=== PATIENT | male | born 1980 | race Caucasian/White ===

== ENCOUNTER 2018-09-24 13:20 | Emergency (ER) | payer SELFPAY ==
[~2018-09-24] VITALS: Ht 185.4 cm; Wt 111.1 kg
[2018-09-24] MEDS ORDERED: KETOROLAC 30 MG/ML VIAL. IV ONE ×2 (13:45→17:30)
[2018-09-24] MEDS ORDERED: IV NORMAL SALINE 1000ML BAG 1,000 ML IV ONE (13:45)
[2018-09-24 13:54] LABS: BILIRUBIN,URINE NEGATIVE (NEG); CLARITY,URINE CLEAR; COLOR,URINE YELLOW; NITRITE,URINE NEGATIVE (NEG); PROTEIN,URINE NEGATIVE (NEG-TRACE); UROBILINOGEN,URINE 0.2 mg/dL (0.2 mg/dL)
[2018-09-24 13:55] LABS: BASO # 0.1 x10^3/uL (0.0-0.2); BASO % 1 % (0-3); EOS # 0.1 x10^3/uL (0.0-0.7); EOS % 1 % (0-3); HEMATOCRIT 42.3 % (39.0-53.0); HEMOGLOBIN 14.8 g/dL (13.0-17.5); LYMPH # 2.4 x10^3/uL (1.0-4.8); LYMPH % 23 % (24-48); MEAN CORPUSCULAR HEMOGLOBIN 32 pg (25-35); MEAN CORPUSCULAR HGB CONC 35 g/dL (31-37); MEAN CORPUSCULAR VOLUME 91 fL (79-100); MONO # 0.9 x10^3/uL (0.0-1.1); MONO % 9 % (0-9); NEUT % 67 % (31-73); PLATELET COUNT 202 x10^3/uL (140-400); RED BLOOD COUNT 4.66 x10^6/uL (4.30-5.70); RED CELL DISTRIBUTION WIDTH 12.8 % (11.5-14.5); WHITE BLOOD COUNT 10.4 x10^3/uL (4.0-11.0)
[2018-09-24 14:05] LABS: CALCIUM 8.9 mg/dL (8.5-10.1); GFR 84.5; POTASSIUM 3.8 mmol/L (3.5-5.1)
[2018-09-24 14:06] LABS: BACTERIA,URINE 0 /HPF (0-FEW); RBC,URINE 0 /HPF (0-2); WBC,URINE 0 /HPF (0-4)
[2018-09-24 14:10] LABS: ALBUMIN 4.2 g/dL (3.4-5.0); ALBUMIN/GLOBULIN RATIO 1.2 (1.0-1.7); TOTAL BILIRUBIN 0.8 mg/dL (0.2-1.0); TOTAL PROTEIN 7.7 g/dL (6.4-8.2)
--- NOTE | 2018-09-24 14:37 | RAD ---
Examination: CT of the abdomen pelvis without contrast HISTORY: History of right flank pain TECHNIQUE: Axial CT images of the abdomen pelvis were performed without contrast. Coronal and sagittal reformats are performed Exposure: One or more of the following individualized dose reduction techniques were utilized for this examination: 1. Automated exposure control 2. Adjustment of the mA and/or kV according to patient size 3. Use of iterative reconstruction technique FINDINGS: Mild right lung base airspace opacities likely atelectasis or infiltrate. Minimal atelectasis identified in the left lung base. No evidence of free air identified in the abdomen. The evaluation of the solid organs is limited due to lack of IV contrast. The evaluation of the bowel is limited lack of oral contrast. The visualized noncontrasted liver, spleen, adrenals grossly appears unremarkable. The gallbladder is mildly distended The stomach is minimally distended. The visualized pancreas grossly appears unremarkable. The small bowel is nondilated. Feces and gas noted in the colon. The urinary bladder is mildly distended. The appendix is normal. No evidence of intrarenal collecting system calculi or hydronephrosis. The caliber of the aorta grossly appears unremarkable. IMPRESSION: 1. No evidence of intrarenal collecting system calculi or hydronephrosis. 2. Normal-appearing appendix. 3. Mild right lung base airspace opacities likely atelectasis or infiltrate. Electronically signed by: Haroon Venegas MD (09/24/2018 2:33 PM) [facility]
--- NOTE | 2018-09-24 16:02 | RAD ---
Testicular ultrasound History: RT TESTICULAR PAIN x1 year. Comparison: None. Technique: Multiple grayscale, color flow Doppler and Doppler spectral analysis images of the scrotum are obtained. Findings: Right testicle measures 4.6 x 3.3 x 2.1 cm. Right testicle demonstrates normal parenchymal echogenicity. Scattered microliths are noted. The right epididymis is unremarkable. Left testicle measures 4.9 x 3.1 x 2.2 cm. Left testicle demonstrates normal parenchymal echogenicity. Scattered microliths are noted. The left epididymis is unremarkable. A varicocele is not demonstrated. There are trace bilateral hydroceles. Scrotal hyperemia or swelling are not seen. Doppler imaging demonstrates normal flow to both testicles, without evidence of torsion. IMPRESSION: 1. No evidence of testicular mass or torsion. 2. Testicular microlithiasis. 3. Trace bilateral hydroceles. Electronically signed by: Gomez Carlson MD (09/24/2018 3:59 PM) [facility] [place]
[2018-09-24 17:18] VITALS: BP 144/90
[2018-09-24] MEDS ORDERED: CYCL5TAB PO (17:27)
[2018-09-24] MEDS ORDERED: HYDR-3164 PO (17:27)
[2018-09-24] MEDS ORDERED: DOXY100C2 PO (17:27)
--- NOTE | 2018-09-24 17:28 | PHYS DOC ---
Past Medical History Past Medical History: Other Additional Past Medical Histor: herpes Past Surgical History: No Surgical History Alcohol Use: Occasionally Drug Use: Marijuana Adult General Chief Complaint Chief Complaint: FLANK PAIN HPI HPI Patient is a 38 year old male who presents with right flank pain that extends into his right testicle. The patient states that he has had several episodes of pain like this in this had complete workups including with urology. They did not find a cause for his pain then. He denies a history of kidney stones. He does still have his gallbladder. He denies fever. He states that the pain was so intense today that he vomited. Review of Systems Review of Systems Constitutional: Denies fever or chills [] Eyes: Denies change in visual acuity, redness, or eye pain [] HENT: Denies nasal congestion or sore throat [] Respiratory: Denies cough or shortness of breath [] Cardiovascular: No additional information not addressed in HPI [] GI: See history of present illness : Denies dysuria or hematuria [] Musculoskeletal: See history of present illness Integument: Denies rash or skin lesions [] Neurologic: Denies headache, focal weakness or sensory changes [] Endocrine: Denies polyuria or polydipsia [] All other systems were reviewed and found to be within normal limits, except as documented in this note. Current Medications Current Medications Current Medications Medications (Trade) Dose Ordered Sig/Anastacio Start Time Stop Time Status Last Admin Dose Admin Ketorolac Tromethamine (Toradol 30mg Vial) 30 mg 1X ONCE 09/24/18 17:30 09/24/18 17:31 UNV Sodium Chloride 1,000 ml @ 1,000 mls/hr 1X ONCE 09/24/18 13:45 09/24/18 14:44 DC 09/24/18 14:01 1,000 MLS/HR Allergies Allergies Allergies Coded Allergies Type Severity Reaction Last Updated Verified No Known Drug Allergies 09/24/18 No Physical Exam Physical Exam Constitutional: Well developed, well nourished, no acute distress, non-toxic appearance. [] HENT: Normocephalic, atraumatic, bilateral external ears normal, oropharynx moist, no oral exudates, nose normal. [] Eyes: PERRLA, EOMI, conjunctiva normal, no discharge. [] Neck: Normal range of motion, no tenderness, supple, no stridor. [] Cardiovascular:Heart rate regular rhythm, no murmur [] Lungs & Thorax: Bilateral breath sounds clear to auscultation [] Abdomen: Bowel sounds normal, soft, right upper quadrant and epigastric tenderness that radiates into his right scrotum, no masses, no pulsatile masses. [] Skin: Warm, dry, no erythema, no rash. [] Back: No point spinal tenderness, right CVA tenderness. [] Extremities: No tenderness, no cyanosis, no clubbing, ROM intact, no edema. [] Neurologic: Alert and oriented X 3, normal motor function, normal sensory function, no focal deficits noted. [] Psychologic: Affect normal, judgement normal, mood normal. [] Current Patient Data Vital Signs Vital Signs Date Time Temp Pulse Resp B/P (MAP) Pulse Ox O2 Delivery O2 Flow Rate FiO2 09/24/18 17:18 80 20 144/90 (108) 99 Room Air 09/24/18 13:30 97.9 97.9 Lab Values Laboratory Tests Test 09/24/18 13:25 09/24/18 13:45 Urine Collection Type Void Urine Color Yellow Urine Clarity Clear Urine pH 6.0 Urine Specific [place] 1.015 Urine Protein Negative mg/dL (NEG-TRACE) Urine Glucose (UA) Negative mg/dL (NEG) Urine Ketones (Stick) Negative mg/dL (NEG) Urine Blood Negative (NEG) Urine Nitrite Negative (NEG) Urine Bilirubin Negative (NEG) Urine Urobilinogen Dipstick 0.2 mg/dL (0.2 mg/dL) Urine Leukocyte Esterase Negative (NEG) Urine RBC 0 /HPF (0-2) Urine WBC 0 /HPF (0-4) Urine Bacteria 0 /HPF (0-FEW) White Blood Count 10.4 x10^3/uL (4.0-11.0) Red Blood Count 4.66 x10^6/uL (4.30-5.70) Hemoglobin 14.8 g/dL (13.0-17.5) Hematocrit 42.3 % (39.0-53.0) Mean Corpuscular Volume 91 fL (79-100) Mean Corpuscular Hemoglobin 32 pg (25-35) Mean Corpuscular Hemoglobin Concent 35 g/dL (31-37) Red Cell Distribution Width 12.8 % (11.5-14.5) Platelet Count 202 x10^3/uL (140-400) Neutrophils (%) (Auto) 67 % (31-73) Lymphocytes (%) (Auto) 23 % (24-48) L Monocytes (%) (Auto) 9 % (0-9) Eosinophils (%) (Auto) 1 % (0-3) Basophils (%) (Auto) 1 % (0-3) Neutrophils # (Auto) 7.0 x10^3uL (1.8-7.7) Lymphocytes # (Auto) 2.4 x10^3/uL (1.0-4.8) Monocytes # (Auto) 0.9 x10^3/uL (0.0-1.1) Eosinophils # (Auto) 0.1 x10^3/uL (0.0-0.7) Basophils # (Auto) 0.1 x10^3/uL (0.0-0.2) Sodium Level 140 mmol/L (136-145) Potassium Level 3.8 mmol/L (3.5-5.1) Chloride Level 103 mmol/L (98-107) Carbon Dioxide Level 28 mmol/L (21-32) Anion Gap 9 (6-14) Blood Urea Nitrogen 19 mg/dL (8-26) Creatinine 1.0 mg/dL (0.7-1.3) Estimated GFR (Cockcroft-Gault) 84.5 BUN/Creatinine Ratio 19 (6-20) Glucose Level 88 mg/dL (70-99) Calcium Level 8.9 mg/dL (8.5-10.1) Total Bilirubin 0.8 mg/dL (0.2-1.0) Aspartate Amino Transferase (AST) 19 U/L (15-37) Alanine Aminotransferase (ALT) 32 U/L (16-63) Alkaline Phosphatase 62 U/L (46-116) Total Protein 7.7 g/dL (6.4-8.2) Albumin 4.2 g/dL (3.4-5.0) Albumin/Globulin Ratio 1.2 (1.0-1.7) Laboratory Tests 09/24/18 13:45 Laboratory Tests 09/24/18 13:45 EKG EKG [] Radiology/Procedures Radiology/Procedures []PATIENT: SHANTANU SIMON AACCOUNT: [id number]#: [id number] : 1980 LOCATION: ER AGE: 38 SEX: M EXAM STATUS: PRE ER ORD. PHYSICIAN: OLYA FUNK APRN REASON: flank pain to right PROCEDURE: CT ABDOMEN PELVIS WO CONTRAST Examination: CT of the abdomen pelvis without contrast HISTORY: History of right flank pain TECHNIQUE: Axial CT images of the abdomen pelvis were performed without contrast. Coronal and sagittal reformats are performed Exposure: One or more of the following individualized dose reduction techniques were utilized for this examination: 1. Automated exposure control 2. Adjustment of the mA and/or kV according to patient size 3. Use of iterative reconstruction technique FINDINGS: Mild right lung base airspace opacities likely atelectasis or infiltrate. Minimal atelectasis identified in the left lung base. No evidence of free air identified in the abdomen. The evaluation of the solid organs is limited due to lack of IV contrast. The evaluation of the bowel is limited lack of oral contrast. The visualized noncontrasted liver, spleen, adrenals grossly appears unremarkable. The gallbladder is mildly distended The stomach is minimally distended. The visualized pancreas grossly appears unremarkable. The small bowel is nondilated. Feces and gas noted in the colon. The urinary bladder is mildly distended. The appendix is normal. No evidence of intrarenal collecting system calculi or hydronephrosis. The caliber of the aorta grossly appears unremarkable. IMPRESSION: 1. No evidence of intrarenal collecting system calculi or hydronephrosis. 2. Normal-appearing appendix. 3. Mild right lung base airspace opacities likely atelectasis or infiltrate. PATIENT: SHANTANU SIMON ACCOUNT: [id number] : 1980 LOCATION: ER AGE: 38 SEX: M EXAM STATUS: REG ER ORD. PHYSICIAN: OLYA FUNK APRN REASON: pain to right testicle PROCEDURE: TESTICULAR/SCROTUM Testicular ultrasound History: RT TESTICULAR PAIN x1 year. Comparison: None. Technique: Multiple grayscale, color flow Doppler and Doppler spectral analysis images of the scrotum are obtained. Findings: Right testicle measures 4.6 x 3.3 x 2.1 cm. Right testicle demonstrates normal parenchymal echogenicity. Scattered microliths are noted. The right epididymis is unremarkable. Left testicle measures 4.9 x 3.1 x 2.2 cm. Left testicle demonstrates normal parenchymal echogenicity. Scattered microliths are noted. The left epididymis is unremarkable. A varicocele is not demonstrated. There are trace bilateral hydroceles. Scrotal hyperemia or swelling are not seen. Doppler imaging demonstrates normal flow to both testicles, without evidence of torsion. IMPRESSION: 1. No evidence of testicular mass or torsion. 2. Testicular microlithiasis. 3. Trace bilateral hydroceles. Electronically signed by: Gomez Herrear MD (09/24/2018 3:59 PM) [facility] [place] and SIGNED BY: GOMEZ HERRERA MD DATE: 09/24/18 9959 Course & Med Decision Making Course & Med Decision Making Pertinent Labs and Imaging studies reviewed. (See chart for details) []Labs and imaging were unable to pinpoint the cause for your pain. It is recommended that you follow back up with your urologist for further workup of this chronic pain. This could possibly be musculoskeletal. We will treat with muscle relaxant and pain medication. The patient did have a small amount of possible atelectasis or infiltrate noted at the base of his lung. We will cover for pneumonia as well. The patient is in agreement with this plan. Dragon Disclaimer Tayler Disclaimer This electronic medical record was generated, in whole or in part, using a voice recognition dictation system. Departure Departure Impression: Primary Impression: Muscle strain Additional Impression: Pneumonia Disposition: 01 HOME, SELF-CARE Condition: STABLE Referrals: NO PCP (PCP) Patient Instructions: Muscle Strain, Pneumonia, Adult Additional Instructions: Take the medications as directed. Follow-up with your primary care provider for further evaluation of this chronic pain. If worsening return to the emergency department. Scripts Hydrocodone/Apap 5-325 (NORCO 5-325 TABLET) 1 Each Tablet 1 TAB PO PRN Q6HRS PRN for PAIN, #14 TAB 0 Refills Prov: OLYA FUNK [employer]OWBOAT ENGINEER 09/24/18 Cyclobenzaprine Hcl (CYCLOBENZAPRINE HCL) 5 Mg Tablet 1 TAB PO QHS for muscle strain, #15 TAB Prov: OLYA FUNK [employer]OWBOAT ENGINEER 09/24/18 Doxycycline Hyclate (DOXYCYCLINE HYCLATE) 100 Mg Capsule 1 CAP PO BID for infection, #20 CAP Prov: OLYA FUNK APRN 09/24/18 Problem Qualifiers OLYA FUNK APRN Sep 24, 2018 17:28
== END 2018-09-24 17:35 | disposition home or self-care (01) ==
LOC: ER 13:20
DX: S39.011A Strain of muscle, fascia and tendon of abdomen, initial encounter (principal); R11.10 Vomiting, unspecified; J18.9 Pneumonia, unspecified organism; Z87.442 Personal history of urinary calculi; X58.XXXA Exposure to other specified factors, initial encounter; Y93.89 Activity, other specified; Y92.89 Other specified places as the place of occurrence of the external cause; Y99.8 Other external cause status
CPT/HCPCS: 36415; 74176; 76870; 80053; 81001; 85025; 87491; 87591; 96361; 96374; 99284; J1885; J7030